=== PATIENT | male | born 1990 | race Two or more races ===

== ENCOUNTER 2021-03-10 13:33 | Emergency (ER) | payer SELFPAY ==
[~2021-03-10] VITALS: Ht 182.9 cm; Wt 118.2 kg
[2021-03-10 14:28] VITALS: BP 131/75
== END 2021-03-10 14:30 | disposition home or self-care (01) ==
LOC: EMS 13:33
DX: R04.0 Epistaxis (principal)
CPT/HCPCS: 99281; Z7502

== ENCOUNTER 2025-04-24 12:41 | Emergency (ER) | payer MEDICAID ==
[~2025-04-24] VITALS: Ht 175.3 cm; Wt 140.0 kg
[2025-04-24 12:45] VITALS: TEMP 98.8
[2025-04-24] MEDS: PERTUSS(ACELL),DIPH,TET/PF 0.5 ML SYRINGE [ADULT] IM. ONE (13:28)
[2025-04-24] MEDS: ACETAMINOPHEN 500 MG TABLET PO ONE (13:29)
[2025-04-24] MEDS: LIDOCAINE 1% 10 ML VIAL ID ONE (13:29)
[2025-04-24] MEDS: BACITRACIN 0.9 GM PACKET OINTMENT TP ONE (13:30)
[2025-04-24 16:29] VITALS: BP 143/95; PULSE 72; RESP 18; O2SAT 97
== END 2025-04-24 16:31 | disposition home or self-care (01) ==
LOC: EMS 12:41
DX: S71.111A Laceration without foreign body, right thigh, initial encounter (principal); I10 Essential (primary) hypertension; X58.XXXA Exposure to other specified factors, initial encounter; Y93.89 Activity, other specified; Y92.89 Other specified places as the place of occurrence of the external cause; Y99.8 Other external cause status
CPT/HCPCS: 99283; 73552; 90715; 90471; 12002; J3490